=== PATIENT | male | born 1945 | race Caucasian/White ===

== ENCOUNTER 2016-06-26 13:35 | Emergency (ER) | payer MEDICARE | END 2016-06-26 15:15 | disposition short-term general hospital (02) | LOC: ER1 13:35 | DX: H53.8 Other visual disturbances (principal); I10 Essential (primary) hypertension; Z95.810 Presence of automatic (implantable) cardiac defibrillator; Z95.1 Presence of aortocoronary bypass graft; Z79.82 Long term (current) use of aspirin; Z79.01 Long term (current) use of anticoagulants; Z79.899 Other long term (current) drug therapy | CPT/HCPCS: 99284 ==

== ENCOUNTER 2021-01-24 14:37 | Emergency (ER) | payer MEDICARE ==
[2021-01-24 15:25] LABS: HEMOGLOBIN 13.3 gm/dl (14.0-17.5); RED BLOOD COUNT 4.51 M/UL (4.20-5.50)
[2021-01-24 15:49] LABS: BUN/CREATININE RATIO 27 (0-10)
[2021-01-24] MEDS ORDERED: PROVENTIL HFA6.7 GM INH (17:15)
== END 2021-01-24 17:51 | disposition home or self-care (01) ==
LOC: ER1 14:37
PROVIDERS: Physician Assistant
DX: U07.1 COVID-19 (principal); R09.02 Hypoxemia; E11.9 Type 2 diabetes mellitus without complications; Z79.4 Long term (current) use of insulin; I48.91 Unspecified atrial fibrillation; I25.2 Old myocardial infarction
CPT/HCPCS: 71045; 80053; 82550; 82553; 83615; 83874; 84484; 85025; 85610; 86140; 93005; 96374; 99284; J1100; U0002

== ENCOUNTER → 2021-12-21 | Outpatient (CLI) | payer MEDICARE ==
[~2021-12-21] MED LIST: PROVENTIL HFA6.7 GM INH
== END ==
LOC: NM 09:10
DX: C61 Malignant neoplasm of prostate (principal); C79.51 Secondary malignant neoplasm of bone
CPT/HCPCS: 78306; A9503